=== PATIENT | male | born 1970 | race American Indian/Alaskan Native ===

== ENCOUNTER 2018-01-15 13:28 | Inpatient (IN) | payer MEDICAID, OTHER ==
[2018-01-15 16:43] LABS: BASO % 0.6 % (0.0-2.0); EOS # 0.1 K/uL (0.0-0.7); EOS % 2.1 % (0.0-4.0); HEMOGLOBIN 13.6 g/dL (12.0-18.0); LYMPH # 1.3 K/uL (1.0-4.3); LYMPH % 23.6 % (20.0-40.0); MEAN CELL VOLUME 81.6 fL (80.0-94.0); MEAN CORPUSCULAR HEMOGLOBIN 27.5 pg (27.0-31.0); MEAN CORPUSCULAR HGB CONC 33.7 g/dL (33.0-37.0); MEAN PLATELET VOLUME 10.1 fL (7.2-11.7); MONO # 0.3 K/uL (0.0-0.8); MONO % 4.7 % (0.0-10.0); NEUT # 3.9 K/uL (1.8-7.0); NRBC % 0.1 % (0.0-2.0); RBC 4.93 Mil/uL (4.40-5.90); RED CELL DISTRIBUTION WIDTH 13.9 % (11.5-14.5); WHITE BLOOD COUNT 5.6 K/uL (4.8-10.8)
--- NOTE | 2018-01-15 16:52 | C.PDOC ---
History Of Present Illness 47 year old male presents to the emergency department requesting detox from heroin, xanax, and alcohol. Patient states that he has been feeling depressed and anxious, and having suicidal and homicidal thoughts. Time Seen by Provider: 01/15/18 15:53 Chief Complaint (Nursing): Substance Abuse History Per: Patient History/Exam Limitations: no limitations Onset/Duration Of Symptoms: Hrs Current Symptoms Are (Timing): Still Present Suicide/Self Injury Attempted (Context): None Modifying Factor(s): Alcohol, Narcotics, Other (heroin) Associated Symptoms: Anxiety, Depression, Suicidal Thoughts, Other (homicidal thoughts) Past Medical History Reviewed: Historical Data, Nursing Documentation, Vital Signs Vital Signs: Last Vital Signs Temp 98.3 F 01/15/18 14:35 Pulse 60 01/15/18 14:35 Resp 18 01/15/18 14:35 BP 148/85 01/15/18 14:35 Pulse Ox 100 01/15/18 16:56 - Medical History PMH: No Chronic Diseases Surgical History: No Surg Hx Family History: States: No Known Family Hx - Social History Hx Alcohol Use: Yes Hx Substance Use: Yes (heroin, xanax) Review Of Systems Except As Marked, All Systems Reviewed And Found Negative. Psych: Positive for: Anxiety, Depression, Suicidal ideation, Other (homicidal ideation) Physical Exam - Physical Exam Appears: Non-toxic, No Acute Distress Skin: Warm, Dry Head: Atraumatic, Normacephalic Eye(s): bilateral: Normal Inspection Oral Mucosa: Moist Throat: Normal, No Erythema, No Exudate Neck: Normal, Supple Chest: Symmetrical Cardiovascular: Rhythm Regular, No Murmur Respiratory: No Rales, No Rhonchi, No Wheezing Gastrointestinal/Abdominal: Normal Exam, Soft, No Tenderness, No Guarding, No Rebound Neurological/Psych: Oriented x3 ED Course And Treatment - Laboratory Results Result Diagrams: 01/15/18 16:40 01/15/18 16:40 O2 Sat by Pulse Oximetry: 100 (RA) Pulse Ox Interpretation: Normal Progress Note: Plan: Alcohol Serum. CMP. Drug Screen. CBC. [facility] Crisis Eval. Urinalysis. Calcium level was low, Calcium po was given. Patient will need to continue calcium po for 5 days. Patient was medically cleared and stable for Psychitry floor admission. She was accepted by . Disposition - Disposition Disposition: HOSPITALIZED Disposition Time: 18:23 Condition: STABLE Forms: [facility] [employer] (Lebanese) - Clinical Impression Clinical Impression: Depression, Drug abuse - PA / SUPERVISOR PRESSING DEPARTMENT / Resident Statement MD/DO has reviewed & agrees with the documentation as recorded. - Scribe Statement The provider has reviewed the documentation as recorded by the Scribe (John Paul Burton) All medical record entries made by the Scribe were at my direction and personally dictated by me. I have reviewed the chart and agree that the record accurately reflects my personal performance of the history, physical exam, medical decision making, and the department course for this patient. I have also personally directed, reviewed, and agree with the discharge instructions and disposition. Decision To Admit - Pt Status Changed To: Hospital Disposition Of: Inpatient - Admit Certification Admit to Inpatient:: After my assessment, the patient will require hospitalization for at least two midnights. This is because of the severity of symptoms shown, intensity of services needed, and/or the medical risk in this patient being treated as an outpatient. - InPatient: Physician Admission Certification: I certify that this patient requires 2 or more midnights of care for the following reason:: pt will need more than 2 days of inpatient treatment for his major depression. - . Bed Request Type: Psychiatry Admitting Physician: Sara Hyatt Patient Diagnosis: Depression, Drug abuse
[2018-01-15 16:55] LABS: ALB/GLOB RATIO 1.5 (1.0-2.1); ALBUMIN 4.3 g/dL (3.5-5.0); ALT/SGPT 24 U/L (21-72); AST/SGOT 18 U/L (17-59); BLOOD UREA NITROGEN 11 mg/dL (9-20); GFR NON-AFRICAN AMERICAN > 60
[2018-01-15 17:00] LABS: URINE BILIRUBIN NEGATIVE (NEGATIVE); URINE BLOOD NEGATIVE (NEGATIVE); URINE CLARITY Clear (Clear); URINE COLOR Yellow (YELLOW); URINE GLUCOSE (UA) NORMAL (Normal); URINE LEUKOCYTE ESTERASE NEG Leu/uL (Negative); URINE PROTEIN NEGATIVE (NEGATIVE)
[2018-01-15 17:14] LABS: BARBITURATES, UR NEGATIVE (NEGATIVE); PHENCYCLIDINE, UR NEGATIVE (NEGATIVE)
[2018-01-15 17:23] LABS: BENZODIAZEPINES, UR POSITIVE (NEGATIVE); OPIATES, UR POSITIVE (NEGATIVE)
--- NOTE | 2018-01-15 19:23 | PCM.BM ---
<Shakeel Merino - Last Filed: 01/15/18 19:21> Treatment Plan Problems - Problems identified on initial assessmt Substance Abuse Date Initiated: 01/15/18 Time Initiated: 19:21 Assessment reference: NA Status: Active Depression Date Initiated: 01/15/18 Time Initiated: 19:21 Assessment reference: NA Status: Active Treatment assets and liabiliti Patient Assests: adapts well, cooperative, self-reliant, ADL independent, physically healthy, negotiates basic needs, cognitively intact Patient Liabilities: substance abuse (Heroin, Alcohol, Marijuana), medical problems (Hx of Depression and PTSD) - Milieu Protocol Maintain good personal hygiene: daily Encourage regular showers, daily Remind patient to perform daily oral care, every shift Assist patient to perform ADL's Conduct patient checks and document Observation sheet: Q15 minutes (For safety) Maintain personal safety: every shift Educate patient to report safety concerns to staff, every shift Monitor environment for contraband/sharps Medication safety: Monitor for expected outcome, potential side effects: every shift, Assess barriers to learning: every shift, Assess readiness for medication education: every shift <Natacha Mcintosh - Last Filed: 01/19/18 12:21> Family Contact Family involvement: Famliy/SO not involved - Goals for Treatment Patient goals for treatment: "I want to go to my outpatient program." Discharge/Continuing Care - Education Needs Education Needs: Patient Medication, Patient Coping Skills, Patient Placement options, Patient Community resources - Discharge Discharge Criteria: Tolerates medication w/o severe side effects, No longer exhibiting s/s of withdrawal, Reduction of target symptoms Discharge to:: Alf - Treatment Team Participation Discussed with Family/SO: No Was Patient/Family/SO present at Treatment Team Meeting: Yes
[2018-01-16] MEDS: Albuterol 0.083% Inhal Sol (2.5 mg/3 mL) UD INH PRN (12:10)
--- NOTE | 2018-01-16 22:13 | PCM.PSYCH ---
Initial Psychiatric Evaluation - Initial Psychiatric Evaluation Legal Status: Capacity Chief Complaint (in patient's own words): I WANTED TO HURT MYSELF Patient's Reaction to Hospitalization: I FEEL SAFE HERE History of Present Illness and Precipitating Events: PT IS A 47 YEAR OLD SINGLE UNEMPLOYED MALE WHO PRESENTED TO ED BECAUSE OF SUICIDAL IDEATION BUT HAD NO PLANS OR INTENT. THIS IS PT'S FIRST PSYCHIATRIC HOSPITALIZATION. PT LIKES HIMSELF BUT FEELS HELPLESS ADD HOPELESS. HE HAS ANERGY , AMOTIVATION AND IS ANHEDONIC. HE HAS DECREASED SLEEP AND APPETITE HE HAS DIFFICULTY CONCENTRATING, PT STATES THAT HE HEARSB FAMILY MEMBERS WHO ARE CALLING HIM. PT HAS NEVER BEEN IN THE . HE HAS SERVED TIME FOR POSSESSION AND DISTRIBUTION OF CDS. SPECIFICALLY HEROIN.PT STARTED USING PAIN KILKKERS THAT WERE NOT PRESCRIBED FOR HIM. HE STARTED USING HEROIN ABOUT AGE 38. AT HIS WORST HE WOULD USE 3-4 BUNDLES A DAY, RECENTLY HE HAS BEEN USING ABOUT FIFTEEN BAGS A DAY. HE USED INTRANASALLY NOT INTRAVENOUSLY SINCE HE IS AFRAID OF NEEDLES.PT DRINKS ABOUT A PINT OF VODKA SEVERAL TIMES A WEEK. HE SMOKES A BLUNT OF CANNABIS DAILY. HESTARTED USING MARIJUANA WHEN HE WAS [age]IRTE[age] YEARS OLD Current Medications: Active Medications Generic Name Dose Route Start Last Admin Trade Name Freq PRN Reason Stop Dose Admin Albuterol Sulfate 2.5 mg 01/16/18 11:52 01/16/18 12:10 Albuterol 0.083% Inhal Sharon (2.5 Mg/3 Ml) Ud INH 2.5 mg RQ6 PRN Administration Shortness of Breath Mirtazapine 15 mg 01/15/18 22:00 01/16/18 21:17 Remeron PO 15 mg HS PRAVEEN Administration Ondansetron HCl 4 mg 01/15/18 20:43 01/15/18 21:19 Zofran Tab PO 4 mg Q6 PRN Administration Nausea/Vomiting Quetiapine Fumarate 50 mg 01/15/18 22:00 01/16/18 21:17 Seroquel PO 50 mg HS PRAVEEN Administration Past Psychiatric History - Past Psychiatric History Prior Professional Help: SEE HPI Pertinent Medical Hx (Current Medical&Sleep Prob, Allergies): Allergies Allergy/AdvReac Type Severity Reaction Status Date / Time EGG Allergy Severe SHORTNESS Verified 01/16/18 08:32 OF BREATH Unobtainable 01/15/18 Review of Systems - Constitutional Constitutional: Malaise - EENT Eyes: UNREMARKABLE Ears: UNREMARKABLE Nose/Mouth/Throat: UNREMARKABLE - Cardiovascular Cardiovascular: UNREMARKABLE - Respiratory Respiratory: UNREMARKABLE - Gastrointestinal Gastrointestinal: Diarrhea, Nausea - Genitourinary Genitourinary: UNREMARKABLE - Reproductive: Male Reproductive:Male: UNREMARKABLE - Musculoskeletal Musculoskeletal: Arthralgias, Myalgias - Integumentary Integumentary: UNREMARKABLE - Psychiatric Psychiatric: Abnormal Sleep Pattern, Anhedonia, Anxiety, Auditory Hallucinations , Change in Appetite, Hopelessness, Suicidal Ideation - Endocrine Endocrine: UNREMARKABLE - Hematologic/Lymphatic Hematologic: UNREMARKABLE Mental Status Examination - Personal Presentation Personal Presentation: Looks older than stated age - Affect Affect: Constricted - Motor Activity Motor Activity: Calm - Reliability in Providing Information Reliability in Providing Information: Fair - Speech Speech: Organized - Mood Mood: Anxious - Formal Thought Process Formal Thought Process: Hallucinations - Obsessions/Compulsions Obsessions: None Compulsions: None - Cognitive Functions Orientation: Person, Place, Situation, Time Sensorium: Alert Abstract Thinking: As evidence by abstract perception of proverbs Estimate of Intelligence: Average Judgement: Intact, as evidence by: Insight regarding need for hospitalization Memory: Recent intact, as evidence by: 3/3 object recall, Remote intact, as evidenced by: Abilit to recall sig. life events - Risk Risk: Suicidal, Withdrawal, Falls - Strength & Assets Inventory Strength & Assets Inventory: Intelligence, Cooperative - Limitations Limitations: Living alone DSM 5 DX - DSM 5 DSM 5 Diagnosis: MAJOR DEPRESSIVE DISORDER RECURRENT SEVERE WITH PSYCHOTIC FEATURES OPIOID WITHDRAWAL OPIOID USEC DISORDER SEVERE ALCOHOL WITHDRAWAL ALCOHOL USE DISORDER MODERATE CANNABIS USE DISORDER MODERATE - Recommended/Plan of Treatment Treatment Recommendations and Plan of Treatment: MAJOR DEPRESSIVE DISORDER RECURRENT SEVERE WITH PSYCHOTIC FEATURES REMGENO SANTOS OPIOID WITHDRAWAL METHADONE TAPER OPIOID USE DISORDER ME CBT GROUP MILIEU AND RECREATIONAL THERAPY SUPPORTIVE PSYCHOTHERAPY SELF HELP GROUPS ALCOHOL WITHDRAWAL OBSERVATION LIBRIUM IF NEEDED ALCOHOL USE DISORDER CBT ME GROUP MILIEU AND RECREATIONAL THERAPY SUPPORTIVE PSYCHOTHERAPY CANNABIS USE DISORDER Projected ELOS: 10 DAYS Prognosis: FAIR WITH CONTINUED TREATMENT Discharge Plan and Discharge Criteria: NO SUICIDAL IDEATION NO ACUTE WITHDRAWAL SYMPTOMS - Smoking Cessation Smoking Cessation Initiated: No
[2018-01-17] MEDS: Albuterol 0.083% Inhal Sol (2.5 mg/3 mL) UD INH PRN (06:40)
--- NOTE | 2018-01-17 10:46 | PCM.PYCHPN ---
Psychiatric Progress Note - Psychiatric Progress Note Patient seen today, length of contact: 15 min Patient Chief Complaint: I am feeling depressed.' Problems Identified/Issues Discussed: Patient seen and evaluated, chart reviewed and discussed with the nurse. Pt still reports depressed mood and at times feelings of hopelessness and helplessness. He remained isolated and withdrawn, and confined to his room. He still reports withdrawal symptoms including cramps, nausea, and joint pains. He denies any AVH or any paranoia. Patient is compliant with medications and denies any side effects. Symptoms are improving but pt needs more time to stabilize. Support and psychoeducation given. Medication Change: Yes Medical Record Reviewed: Yes Mental Status Examination - Cognitive Function Orientation: Person, Place, Situation, Time Memory: Intact Attention: WNL Concentration: Poor Association: WNL Fund of Knowledge: Poor - Mood Mood: Anxious - Affect Affect: Constricted - Speech Speech: Soft - Formal Thought Process Formal Thought Process: Hallucinations - Suicidal Ideation Suicidal Ideation: No - Homicidal Ideation Homicidal Ideation: No Goal/Treatment Plan - Goal/Treatment Plan Need for Continued Stay: Severe depression anxiety, Severe functional impairment Progress Toward Problem(s) and Goals/Treatment Plan: Major depressive disorder recurrent severe without psychotic features CBT Psychoeducation Supportive therapy, group therapy Mirtazapine 30 mg PO QHS Gabapentin for augmentation Seroquel 100 mg PO QHS Hydroxyzine for anxiety Opiate use disorder severe CBT Psychoeducation Supportive therapy, individual therapy Use WI for abstinence Opiate withdrawal uncomplicated CBT Psychoeducation Supportive therapy, individual therapy Methadone taper - Smoking Cessation Smoking Cessation Initiated: No
--- NOTE | 2018-01-19 00:51 | PCM.PYCHPN ---
Psychiatric Progress Note - Psychiatric Progress Note Patient seen today, length of contact: 15 min Patient Chief Complaint: I am feeling depressed.' Problems Identified/Issues Discussed: Patient seen and evaluated, chart reviewed and discussed with the nurse. As per the staff, pt remained isolated and withdrawn. He still reports depressed mood and reports feelings of helplessness. He remained isolated and withdrawn, and confined to his room. He still reports withdrawal symptoms including cramps, nausea, and joint pains. He reports improvement in his paranoia. Patient is compliant with medications and denies any side effects. Symptoms are improving but pt needs more time to stabilize. Support and psychoeducation given. Medication Change: Yes Medical Record Reviewed: Yes Mental Status Examination - Cognitive Function Orientation: Person, Place, Situation, Time Memory: Intact Attention: WNL Concentration: Poor Association: WNL Fund of Knowledge: Poor - Mood Mood: Anxious - Affect Affect: Constricted - Speech Speech: Soft - Formal Thought Process Formal Thought Process: Hallucinations - Suicidal Ideation Suicidal Ideation: No - Homicidal Ideation Homicidal Ideation: No Goal/Treatment Plan - Goal/Treatment Plan Need for Continued Stay: Severe depression anxiety, Severe functional impairment Progress Toward Problem(s) and Goals/Treatment Plan: Major depressive disorder recurrent severe without psychotic features CBT Psychoeducation Supportive therapy, group therapy Mirtazapine 30 mg PO QHS Gabapentin for augmentation Seroquel 100 mg PO QHS Hydroxyzine for anxiety Opiate use disorder severe CBT Psychoeducation Supportive therapy, individual therapy Use NC for abstinence Opiate withdrawal uncomplicated CBT Psychoeducation Supportive therapy, individual therapy Methadone taper
[2018-01-19 06:33] VITALS: RESP 18
--- NOTE | 2018-01-19 14:30 | PCM.PYCHPN ---
Psychiatric Progress Note - Psychiatric Progress Note Patient seen today, length of contact: 15 min Patient Chief Complaint: "I am a little better." Problems Identified/Issues Discussed: Pt is seen, chart reviewed, case discussed with staff. Pt is compliant with medications and reports no side-effects. Symptoms are improving but needs more time to stabilize. Pt says that he is overwhelmed due to many family issues as well as the finances to take care of these issues; pts mother has stage IV cancer. After care discussed; pt will be discharged tomorrow and attend [facility]. Medication Change: Yes Medical Record Reviewed: Yes Mental Status Examination - Cognitive Function Orientation: Person, Place, Situation, Time Memory: Intact Attention: WNL Concentration: Poor Association: WNL Fund of Knowledge: Poor - Mood Mood: Anxious - Affect Affect: Constricted - Speech Speech: Soft - Formal Thought Process Formal Thought Process: Hallucinations - Suicidal Ideation Suicidal Ideation: No - Homicidal Ideation Homicidal Ideation: No Goal/Treatment Plan - Goal/Treatment Plan Need for Continued Stay: Severe depression anxiety, Severe functional impairment Progress Toward Problem(s) and Goals/Treatment Plan: Continue medications. Support and psychoeducation daily Attend groups and activities daily After care planning by SHRUTHI 15 min
[2018-01-19 16:46] VITALS: O2SAT 97
[2018-01-20 06:55] VITALS: BP 117/66; PULSE 60; TEMP 97.6
--- NOTE | 2018-01-20 10:51 | PCM.PYCHDC ---
Mental Status Examination - Mental Status Examination Orientation: Person, Place, Situation, Time Memory: Intact Mood: Neutral Affect: Constricted Speech: Soft Attention: WNL Concentration: WNL Association: WNL Fund of Knowledge: WNL Formal Thought Process: No Impairment Description of patient's judgement and insight: good, fair Psychotic Thoughts and Behaviors: denies any AVH Suicidal Ideation: No Current Homicidal Ideation?: No Discharge Summary - Discharge Note Reason for Hospitalization: PT IS A 47 YEAR OLD SINGLE UNEMPLOYED MALE WHO PRESENTED TO ED BECAUSE OF SUICIDAL IDEATION BUT HAD NO PLANS OR INTENT. THIS IS PT'S FIRST PSYCHIATRIC HOSPITALIZATION. PT LIKES HIMSELF BUT FEELS HELPLESS ADD HOPELESS. HE HAS ANERGY , AMOTIVATION AND IS ANHEDONIC. HE HAS DECREASED SLEEP AND APPETITE HE HAS DIFFICULTY CONCENTRATING, PT STATES THAT HE HEARSB FAMILY MEMBERS WHO ARE CALLING HIM. PT HAS NEVER BEEN IN THE . HE HAS SERVED TIME FOR POSSESSION AND DISTRIBUTION OF CDS. SPECIFICALLY HEROIN.PT STARTED USING PAIN KILKKERS THAT WERE NOT PRESCRIBED FOR HIM. HE STARTED USING HEROIN ABOUT AGE 38. AT HIS WORST HE WOULD USE 3-4 BUNDLES A DAY, RECENTLY HE HAS BEEN USING ABOUT FIFTEEN BAGS A DAY. HE USED INTRANASALLY NOT INTRAVENOUSLY SINCE HE IS AFRAID OF NEEDLES.PT DRINKS ABOUT A PINT OF VODKA SEVERAL TIMES A WEEK. HE SMOKES A BLUNT OF CANNABIS DAILY. HESTARTED USING MARIJUANA WHEN HE WAS [age]TE[age] YEARS OLD Consultations:: List each consultation separately and include: 1. Reason for request. 2. Findings. 3. Follow-up Summary of Hospital Course include:: 1. Description of specific treatment plan utilized for patients during their course of treatmen. 2. Summarize the time- course for resolution of acute symptoms and/or regressed behaviors. 3. Describe issues identified and worked on during hospitalization. 4. Describe medication utilized. 5. Describe medical problems identified and treated. 6. Reassessment of suicide risk Summary of Hospital Course: During the course of his stay, patient (pt) started progressively improving and no longer remained irritable, depressed, and suicidal. Remeron and seroquel were started and pt showed a very good response. His mood and anxiety were improved and he started attending groups and meetings and started socializing. Patient denied any feelings of hopelessness, helplessness, and worthlessness, denied any problem with the sleep or appetite, denied suicidal ideation or homicidal ideation. Pt denied any auditory or visual hallucinations. He denied any withdrawal symptoms. Pt was treated with medications along with supportive therapy, milieu therapy and group therapy. Some changes were made in his current medications and patient was discharged on following medications. He tolerated these medications very well and denied any side effects. - Final Diagnosis (DSM 5) Condition upon Discharge: STABLE DSM 5: Major depressive disorder recurrent severe without psychotic features Opiate use disorder severe Opiate withdrawal uncomplicated Disposition: HOME/ ROUTINE Follow-up Treatment Plan: Followup: He was discharged to the [facility] outpatient program, [place], [place]. Education: Pt was educated and counseled about the risks and benefits of taking and not taking medications. Pt was educated and counseled about the risks of drinking and abusing drugs. Pt was educated and counseled to go to the ER or call 911 if pt develop suicidal ideation or homicidal ideation, worsening of symptoms or severe side effects of the meds. Prescriptions/Medication Reconciliation: Gabapentin [Neurontin] 300 mg PO BID #60 cap Mirtazapine [Remeron] 30 mg PO HS #30 tab QUEtiapine [Seroquel] 100 mg PO HS #30 tab - Smoking Cessation Smoking Cessation Medication prescribed: No - Antipsychotic Medications Pt discharged on 2 or more routine antipsychotic medications: No
== END 2018-01-20 12:45 | disposition home or self-care (01) | DRG 430 ==
LOC: C.ER 13:28 → C.5E 18:20
PROVIDERS: ADMIT Psychiatry & Neurology Psychiatry; ATTEND Psychiatry & Neurology Psychiatry
PROC: GZ3ZZZZ Medication Management (ICD-10-PCS; principal; 2018-01-15)
PROC: HZ81ZZZ Medication Management for Substance Abuse Treatment, Methadone Maintenance (ICD-10-PCS; 2018-01-15)
PROC: HZ2ZZZZ Detoxification Services for Substance Abuse Treatment (ICD-10-PCS; 2018-01-15)
PROC: GZHZZZZ Group Psychotherapy (ICD-10-PCS; 2018-01-15)
PROC: GZ56ZZZ Individual Psychotherapy, Supportive (ICD-10-PCS; 2018-01-15)
PROC: HZ46ZZZ Group Counseling for Substance Abuse Treatment, Psychoeducation (ICD-10-PCS; 2018-01-15)
DX: F33.3 Major depressive disorder, recurrent, severe with psychotic symptoms (principal); F11.23 Opioid dependence with withdrawal; F10.239 Alcohol dependence with withdrawal, unspecified; F12.20 Cannabis dependence, uncomplicated; F41.9 Anxiety disorder, unspecified; R45.851 Suicidal ideations; R45.850 Homicidal ideations